=== PATIENT | male | born 1935 | race Caucasian/White ===

== ENCOUNTER 2021-08-15 13:43 | Emergency (ER) | payer OTHER ==
[~2021-08-15] VITALS: Ht 172.7 cm; Wt 88.5 kg
[2021-08-15] MEDS ORDERED: KETOROLAC 30MG VIAL (30MG/ML) ONE (13:52)
[2021-08-15] MEDS ORDERED: HYDROCODONE/ACETAMINOPHEN 5/325 MG TAB ONE (13:53)
[2021-08-15] MEDS ORDERED: HYDROCODONE/ACETAMINOPHEN 5/325 MG TAB PO ONE (14:00)
[2021-08-15] MEDS ORDERED: KETOROLAC 30MG VIAL (30MG/ML) IM ONE (14:00)
[2021-08-15 14:07] LABS: APPEARANCE,URINE Clear (CLEAR); BILIRUBIN,URINE Negative (NEGATIVE); COLOR,URINE Yellow (YELLOW); GLUCOSE, URINE (UA) Negative (NEGATIVE); KETONES,URINE Negative (NEGATIVE); LEUKOCYTE ESTERASE ,URINE Negative (NEGATIVE); NITRATE,URINE Negative (NEGATIVE); OCCULT BLOOD,URINE Negative (NEGATIVE); PH,URINE 5.5 (5.0-8.0); PROTEIN,URINE Negative (NEGATIVE); UROBILINOGEN,URINE 0.2 mg/dL (0.2-1.0)
[2021-08-15] MEDS ORDERED: ACET-3194 PO (14:32)
[2021-08-15] MEDS ORDERED: TRAM50TA4 PO (14:32)
[2021-08-15] MEDS ORDERED: IBUP-2070 PO (14:32)
[2021-08-15 14:54] VITALS: BP 137/83
== END 2021-08-15 14:55 | disposition home or self-care (01) ==
LOC: EDH 13:43
DX: S39.012A Strain of muscle, fascia and tendon of lower back, initial encounter (principal); M54.41 Lumbago with sciatica, right side; I10 Essential (primary) hypertension; E78.00 Pure hypercholesterolemia, unspecified; Z87.891 Personal history of nicotine dependence; Z79.1 Long term (current) use of non-steroidal anti-inflammatories (NSAID); X58.XXXA Exposure to other specified factors, initial encounter; Y93.89 Activity, other specified; Y92.89 Other specified places as the place of occurrence of the external cause; Y99.8 Other external cause status
CPT/HCPCS: 72100; 81003; 96372; 99284; J1885

== ENCOUNTER 2022-02-07 08:44 | Observation (INO) | payer MEDICARE ==
[~2022-02-07] VITALS: Ht 172.7 cm; Wt 93.3 kg
[2022-02-07 10:22] LABS: BASOPHILS % (AUTO) 0.7 % (0.0-5.0); EOSINOPHILS % (AUTO) 3.5 % (0.0-8.0); HEMATOCRIT 45.7 % (42-54); LYMPHOCYTES % (AUTO) 23.9 % (21.0-51.0); MEAN CORPUSCULAR HEMOGLOBIN 29.1 pg (27.0-33.0); MEAN CORPUSCULAR HGB CONC 31.9 g/dL (32.0-36.0); MEAN CORPUSCULAR VOLUME 91.2 fL (79-99); MONOCYTES % (AUTO) 6.7 % (3.0-13.0); NEUTROPHILS % (AUTO) 64.8 % (40.0-77.0); PLATELET COUNT (AUTO) 169 K/uL (130-400); RED BLOOD CELL COUNT(AUTO) 5.01 MIL/uL (4.50-6.20); RED CELL DISTRIBUTION WIDTH 13.1 % (11.0-15.5); WHITE BLOOD COUNT (AUTO) 8.3 K/uL (4.8-10.8)
[2022-02-07 10:37] LABS: CREATININE 1.1 mg/dL (0.5-1.5); POTASSIUM 4.1 mmol/L (3.5-5.1)
[2022-02-07 13:26] VITALS: BP 149/75
[2022-02-07] MEDS ORDERED: GABA300C PO (13:59)
[2022-02-07] MEDS ORDERED: FINA5TAB41 PO (13:59)
[2022-02-07] MEDS ORDERED: DABI150C PO (13:59)
[2022-02-07] MEDS ORDERED: ZINC PO (13:59)
[2022-02-07] MEDS ORDERED: METO-408 PO (13:59)
[2022-02-07] MEDS ORDERED: DONE10TA43 PO (13:59)
[2022-02-07] MEDS ORDERED: ATOR10 PO (13:59)
[2022-02-07] MEDS ORDERED: LATA7.5D OP (13:59)
[2022-02-07] MEDS ORDERED: HYDR12.54 PO (13:59)
[2022-02-07] MEDS ORDERED: TAMS-1 PO (13:59)
[2022-02-07] MEDS ORDERED: VITAMIN B12 PO (13:59)
[2022-02-07] MEDS ORDERED: LOSA50TA64 PO (13:59)
[2022-02-07] MEDS ORDERED: VITAMIN D3 PO (13:59)
[2022-02-08] VITALS (29 sets, daily range): BP systolic 92–148; BP diastolic 45–89
[2022-02-08] MEDS: CEFAZOLIN SODIUM 1 GM VIAL IVP SCH ×5 (06:00→20:52)
[2022-02-08] MEDS ORDERED: BUPIVACAINE/EPI/PF 0.25% 30ML VIAL IJ ONE (06:44)
[2022-02-08] MEDS ORDERED: CEFAZOLIN SODIUM 1 GM VIAL ONE ×2 (06:44→12:09)
[2022-02-08] MEDS ORDERED: THROMBIN-JMI 20000 UNIT KIT TP ONE (06:45)
[2022-02-08] MEDS ORDERED: MORPHINE PF 100MG/10ML AMP IV ONE (06:45)
[2022-02-08] MEDS ORDERED: LACTATED RINGERS 1000ML 1,000 ML IV ONE (06:47)
[2022-02-08] MEDS ORDERED: MIDAZOLAM HCL 1 MG/ML 2ML VIAL ONE (07:24)
[2022-02-08] MEDS ORDERED: PROPOFOL 10 MG/ML 20ML VIAL IV ONE (07:24)
[2022-02-08] MEDS ORDERED: ROCURONIUM 10MG/1ML SYR 10 MG/ML ML ONE ×2 (07:24→08:09)
[2022-02-08] MEDS ORDERED: FENTANYL CITRATE PF 50 MCG/1 ML 2ML VIAL ONE (07:25)
[2022-02-08] MEDS ORDERED: DEXAMETHASONE SOD PHOSPHATE 10MG/ML 1ML VIAL ONE ×2 (07:55→10:41)
[2022-02-08] MEDS ORDERED: PROPOFOL 1000 MG/100 ML 100 ML IV ONE ×2 (08:07→10:56)
[2022-02-08] MEDS ORDERED: EPHEDRINE SULFATE 50 MG/ML AMPULE ONE (08:34)
[2022-02-08] MEDS ORDERED: ESMOLOL HCL 10 MG/ML 10 ML VIAL ONE (11:08)
[2022-02-08] MEDS ORDERED: ARTIFICIAL TEARS 3.5 GM OINTMENT ONE (11:08)
[2022-02-08] MEDS ORDERED: PHENYLEPHRINE HCL 10 MG/ML 1ML VIAL IV ONE (11:10)
[2022-02-08] MEDS ORDERED: METOPROLOL TARTRATE 1 MG/ML 5ML VIAL IV ONE ×2 (11:43→12:19)
[2022-02-08] MEDS ORDERED: ALBUMIN (HUMAN) 5% 250 ML IV ONE (12:23)
[2022-02-08] MEDS: LACTATED RINGERS 1000ML 1,000 ML IV SCH (12:30)
[2022-02-08] MEDS ORDERED: MORPHINE 2 MG SYG IVP PRN (12:30)
[2022-02-08] MEDS ORDERED: HYDROCODONE/ACETAMINOPHEN 5/325 MG TAB PO PRN (12:30)
[2022-02-08] MEDS ORDERED: PROMETHAZINE HCL 25 MG/ML 1ML AMPULE IM PRN (12:30)
[2022-02-08] MEDS ORDERED: 0.9%NACL 10ML VIAL IVP PRN (12:30)
[2022-02-08] MEDS: DEXAMETHASONE SOD PHOSPHATE 4 MG/ML 1ML VIAL IVP SCH ×2 (12:30→17:54)
[2022-02-08] MEDS: HYDROCHLOROTHIAZIDE 25 MG TABLET PO SCH (13:31)
[2022-02-08] MEDS: CYANOCOBALAMIN (VITAMIN B-12) 1,000 MCG TABLET PO SCH (13:34)
[2022-02-08] MEDS: ZINC SULFATE 220 CAPSULE PO SCH (13:37)
[2022-02-08] MEDS: GABAPENTIN 300 MG CAPSULE PO SCH ×2 (16:15→20:53)
[2022-02-08] MEDS ORDERED: ONDANSETRON 4MG INJ IVP SCH (17:33)
[2022-02-08] MEDS ORDERED: ONDANSETRON 4MG INJ ONE (17:40)
[2022-02-08] MEDS ORDERED: METOPROLOL TARTRATE 25 MG TAB ONE (18:05)
[2022-02-08] MEDS ORDERED: METOPROLOL SUCCINATE 50 MG TAB.SR.24H PO ONE (18:24)
[2022-02-08] MEDS: METOPROLOL SUCCINATE 50 MG TAB.SR.24H PO SCH ×2 (18:25→20:54)
[2022-02-08] MEDS ORDERED: ONDANSETRON 4MG INJ IVP PRN (19:30)
[2022-02-08] MEDS: ATORVASTATIN 10 MG TABLET PO SCH (20:53)
[2022-02-08] MEDS: VITAMIN D3 1000 MG PO SCH (20:53)
[2022-02-08] MEDS: LOSARTAN 50 MG TABLET PO SCH (20:53)
[2022-02-08] MEDS: DONEPEZIL HCL 5 MG TAB PO SCH (20:53)
[2022-02-08] MEDS ORDERED: LATANOPROST 2.5 ML DROPS OP SCH (21:00)
[2022-02-09] VITALS: BP 152/98
[2022-02-09] MEDS: DEXAMETHASONE SOD PHOSPHATE 4 MG/ML 1ML VIAL IVP SCH ×2 (00:37→06:27)
[2022-02-09] MEDS: LACTATED RINGERS 1000ML 1,000 ML IV SCH (01:55)
[2022-02-09] MEDS: CEFAZOLIN SODIUM 1 GM VIAL IVP SCH ×2 (03:53→12:30)
[2022-02-09 04:05] VITALS: BP 137/85
[2022-02-09] MEDS ORDERED: METOPROLOL TARTRATE 1 MG/ML 5ML VIAL IV ONE (06:46)
[2022-02-09] MEDS ORDERED: METOPROLOL TARTRATE 1 MG/ML 5ML VIAL IV SCH (07:00)
[2022-02-09] MEDS: VITAMIN D3 1000 MG PO SCH ×2 (09:00→21:00)
[2022-02-09 10:22] LABS: CHOLESTEROL 120 mg/dL (<200); HDL CHOLESTEROL 56 mg/dL (29-71); LDL DIRECT 53 mg/dL (0-99); TRIGLYCERIDES 73 mg/dL (30-200)
[2022-02-09] MEDS: FINASTERIDE 5 MG TABLET PO SCH (10:36)
[2022-02-09] MEDS: CYANOCOBALAMIN (VITAMIN B-12) 1,000 MCG TABLET PO SCH (10:36)
[2022-02-09] MEDS: ZINC SULFATE 220 CAPSULE PO SCH (10:36)
[2022-02-09] MEDS: HYDROCHLOROTHIAZIDE 25 MG TABLET PO SCH (10:36)
[2022-02-09] MEDS: TAMSULOSIN HCL 0.4 MG CAP.ER.24H PO SCH ×2 (10:37→20:46)
[2022-02-09 12:00] VITALS: BP 152/75
[2022-02-09 17:36] VITALS: BP 125/67
[2022-02-09 20:03] VITALS: BP 137/82
[2022-02-09] MEDS: ATORVASTATIN 10 MG TABLET PO SCH (20:46)
[2022-02-09] MEDS: DONEPEZIL HCL 5 MG TAB PO SCH (20:47)
[2022-02-09] MEDS: METOPROLOL SUCCINATE 50 MG TAB.SR.24H PO SCH (20:48)
[2022-02-09] MEDS: LOSARTAN 50 MG TABLET PO SCH (20:48)
[2022-02-09] MEDS ORDERED: GABAPENTIN 300 MG CAPSULE PO SCH (21:00)
[2022-02-10 04:38] VITALS: BP 134/71
[2022-02-10] MEDS: VITAMIN D3 1000 MG PO SCH (08:10)
[2022-02-10 09:13] VITALS: BP 126/86
[2022-02-10] MEDS: FINASTERIDE 5 MG TABLET PO SCH (11:01)
[2022-02-10] MEDS: ZINC SULFATE 220 CAPSULE PO SCH (11:01)
[2022-02-10] MEDS: CYANOCOBALAMIN (VITAMIN B-12) 1,000 MCG TABLET PO SCH (11:01)
[2022-02-10] MEDS: HYDROCHLOROTHIAZIDE 25 MG TABLET PO SCH (11:01)
== END 2022-02-10 13:15 | disposition home or self-care (01) ==
LOC: DAHIP 08:44 → UNDOADMOB 08:44 → INTOOBSV 02-08 05:45 → OBSVTOIN 02-08 05:45 → DAHIP 02-08 05:45 → 4CH 02-08 14:28
PROVIDERS: ADMIT Neurological Surgery; ATTEND Neurological Surgery
DX: M48.062 Spinal stenosis, lumbar region with neurogenic claudication (principal); Z20.822 Contact with and (suspected) exposure to COVID-19; I10 Essential (primary) hypertension; I48.20 Chronic atrial fibrillation, unspecified; E78.5 Hyperlipidemia, unspecified; M25.78 Osteophyte, vertebrae; Z79.899 Other long term (current) drug therapy; Z98.890 Other specified postprocedural states
CPT/HCPCS: 36415 ×2; 63047; 63048 ×3; 71045; 72020; 80048; 80061; 85025; 87635; 96372; 96374; 96375 ×2; 96376 ×2; 97039 ×2; 97116 ×2; 97161; A4215; A4221; A4222; A4223; A4344; A4649 ×3; A4663; G0378 ×47; J0690 ×5; J1100 ×5; J2250; J2274; J2370; J2405 ×2; J2550; J2704 ×3; J3010; J3490 ×6; J7120 ×3; P9045

== ENCOUNTER → 2023-08-09 | Outpatient (CLI) | payer MEDICARE ==
[~2023-08-09] MED LIST: ATOR10 PO; DONE10TA43 PO; FINA5TAB41 PO; HYDR12.54 PO; LATA7.5D OP; LOSA50TA64 PO; METO-408 PO; TAMS-1 PO; VITAMIN B12 PO; VITAMIN D3 PO; ZINC PO
== END | disposition home or self-care (01) ==
LOC: RAH 12:02
PROVIDERS: ATTEND Student in an Organized Health Care Education/Training Program
DX: S22.32XA Fracture of one rib, left side, initial encounter for closed fracture (principal); I70.0 Atherosclerosis of aorta; M47.815 Spondylosis without myelopathy or radiculopathy, thoracolumbar region; X58.XXXA Exposure to other specified factors, initial encounter; Y93.89 Activity, other specified; Y92.89 Other specified places as the place of occurrence of the external cause; Y99.8 Other external cause status
CPT/HCPCS: 71046

== ENCOUNTER → 2023-09-12 | Outpatient (CLI) | payer MEDICARE | END | disposition home or self-care (01) | LOC: SHCH 10:30 | PROVIDERS: ATTEND Student in an Organized Health Care Education/Training Program | DX: I11.9 Hypertensive heart disease without heart failure (principal); E78.5 Hyperlipidemia, unspecified; R07.9 Chest pain, unspecified | CPT/HCPCS: 93306 ==

== ENCOUNTER → 2024-09-04 | Outpatient (CLI) | payer MEDICARE ==
[2024-09-04 13:16] LABS: CHOLESTEROL 112 mg/dL (<200); HDL CHOLESTEROL 54 mg/dL (29-71); LDL DIRECT 52 mg/dL (0-99); TRIGLYCERIDES 86 mg/dL (30-200)
== END | disposition home or self-care (01) ==
LOC: LAB 08-21 11:39
PROVIDERS: ATTEND Student in an Organized Health Care Education/Training Program
DX: E78.2 Mixed hyperlipidemia (principal)
CPT/HCPCS: 36415; 80061